=== PATIENT | male | born 2005 | race Two or more races ===

== ENCOUNTER 2024-05-12 04:48 | Inpatient (IN) | payer MEDICAID, OTHER ==
[~2024-05-12] VITALS: Ht 177.8 cm; Wt 59.0 kg
--- NOTE | 2024-05-12 05:11 | ED.PDOC ---
History of Present Illness HPI Comments 19 year old male presents to the ED with a chief complaint of generalized weakness onset today. Patient began experiencing nausea/vomiting, went to the restroom and shortly after was found on the bathroom floor, weak, not responsive and disoriented. Mother states patient had wingstop for dinner, patient's si shannan experienced nausea/vomiting one day ago. Upon ED arrival BS was 120, BP 113/76, HR 113. PMHx asthma. No other symptoms or modifying factors present at this time. Chief Complaint: General Weakness Time Seen by MD: 05:02 Reviewed Notes: Medications, Allergies Allergies: Coded Allergies: NO KNOWN ALLERGIES (Unverified , 05/12/24) Home Meds Active Scripts Amoxicillin & Pot Clavulanate (AUGMENTIN TABLET) 875 Mg Tb, 875 MG PO BID for 5 Days, #10 TAB Prov:ARCELIA CARRRA RESIDENT 05/13/24 Information Source: Patient, Relative (Mother) Mode of Arrival: Ambulatory Severity: Moderate Timing: Hours Duration: Since onset Prehospital treatment: None Past Medical History PAST MEDICAL HISTORY: Asthma Surgical History: Denies all surgeries Family History Family History: Unknown Social History Smoker: Non-Smoker Alcohol: Denies ETOH Use Drugs: Denies Drug Use Lives In: Home Constitutional: reports: chills, weakness; denies: diaphoresis, fatigue, fever, malaise, sweats, others EENTM: denies: blurred vision, double vision, ear bleeding, ear discharge, ear drainage, ear pain, ear ringing, eye pain, eye redness, hearing loss, mouth beth n, mouth swelling, nasal discharge, nose bleeding, nose congestion, nose pain, photophobia, tearing, throat pain, throat swelling, voice changes, others Cardiovascular: denies: chest pain, dizzy spells, diaphoresis, Dyspnea on exertion, edema, irregular heart beat, left arm pain, lightheadedness, palpitations, PND, syncope, others Gastrointestinal: reports: nausea, vomiting; denies: abdomen distended, abdominal pain, blood streaked bowels, constipated, diarrhea, dysphagia, difficulty swallowing, hematemesis, melena, poor appetite, poor fluid intake, rectal bleeding, rectal pain, others Genitourinary: denies: burning, dysuria, flank pain, frequency, hematuria, incontinence, penile discharge, penile sore, pain, testicle pain, testicle swelling, urgency, others Neurological: reports: weakness, others (disoriented); denies: dizziness, fainting, headache, left sided numbness, left sided weakness, numbness, paresthesia, pre-existing deficit, right sided numbness, right sided weakness, seizure, speech problems, tingling, tremors Musculoskeletal: denies: back pain, gout, joint pain, joint swelling, muscle pain, muscle stiffness, neck pain, others Integumetry: reports: change in color (pale); denies: bruises, change in hair/nails, dryness, laceration, lesions, lumps, rash, wounds, others Allergic/Immunocompromised: denies: Difficulty Healing, Frequent Infections, Hives, Itching, others Hematologic/Lymphatic: denies: anemia, blood clots, easy bleeding, easy bruising, swollen glands, others Endocrine: denies: excessive hunger, excessive sweating, excessive thirst, excessive urination, flushing, intolerance to cold, intolerance to heat, unexplained weight gain, unexplained weight loss, others Psychiatric: denies: anxiety, bipolar disorder, depression, hopeless, panic disorder, schizophrenia, sleepless, suicidal, others All Other Systems: Reviewed and Negative Physical Exam General Appearance: Moderate Distress, Thin, Other (weak apperaring, diaphoretic ) HEENT: Normal ENT Inspection, Pharynx Normal, TMs Normal Neck: Full Range of Motion, Non-Tender, Normal, Normal Inspection Respiratory: Chest Non-Tender, Lungs Clear, No Accessory Muscle Use, No Respiratory Distress, Normal Breath Sounds Cardiovascular: No Edema, No JVD, No Murmur, No Gallop, Normal Peripheral Pulses, Regular Rate/Rhythm Breast Exam: Deferred Gastrointestinal: No Organomegaly, Non Tender, No Pulsatile Mass, Normal Bowel Sounds, Soft Genitalia: Deferred Pelvic: Deferred Rectal: Deferred Extremities: No calf tenderness, Normal capillary refill, Normal inspection, Normal range of motion, Non-tender, No pedal edema Musculoskeletal : Apperance: Normal Neurologic: Alert, e commerce web developer II-XII nml as Tested, No Motor Deficits, Normal Affect, Normal Mood, No Sensory Deficits Cerebellar Function: Normal Reflexes: Normal Skin: Dry, Pallor, Other (cool to touch) Lymphatic: No Adenopathy Was a procedure done? Was a procedure done?: No Differential Dx Considerations may include: Viral syndrome, gastroenteritis, dehydration, colitis X-Ray, Labs, Meds, VS Vital Signs Date Time Temp Pulse Resp B/P (MAP) Pulse Ox O2 Delivery O2 Flow Rate FiO2 05/12/24 09:00 98 16 95 Room Air* 0 21 05/12/24 08:00 98 16 118/69 (85) 95 05/12/24 06:18 95 15 96 Room Air* 0 21 05/12/24 06:01 97.1 95 15 117/72 (87) 96 97.1 05/12/24 05:09 114 05/12/24 04:48 97.1 115 20 113/76 (88) 99 Lab Test 05/12/24 08:04 05/12/24 07:34 05/12/24 05:26 Range/Units Influenza Type A Antigen Negative Negative Influenza Type B Antigen Negative Negative SARS-CoV-2 Antigen (Rapid) Negative NEGATIVE Lactic Acid Level 1.1 4.5 *H 0.4-2.0 mmol/L White Blood Count 28.3 H 4.4-10.8 10^3/uL Red Blood Count 6.76 H 4.5-5.90 10^6/uL Hemoglobin 19.7 H 13.5-17.5 g/dL Hematocrit 56.5 H 41.0-53.0 % Mean Corpuscular Volume 83.6 80.0-100.0 fL Mean Corpuscular Hemoglobin 29.1 28.0-32.0 pg Mean Corpuscular Hemoglobin Concent 34.8 32.0-36.0 g/dL Red Cell Distribution Width 12.6 11.8-14.3 % Platelet Count 459 H 140-450 10^3/uL Mean Platelet Volume 7.1 6.9-10.8 fL Neutrophils (%) (Auto) 37.0-80.0 % Lymphocytes (%) (Auto) 10.0-50.0 % Monocytes (%) (Auto) 0.0-12.0 % Basophils (%) (Auto) 0.0-2.0 % Neutrophils # (Auto) 1.6-8.6 10 ^3/uL Lymphocytes # (Auto) 0.4-5.4 10 ^3/uL Monocytes # (Auto) 0-1.3 10 ^3/uL Differential Total Cells Counted 100.0 100 Neutrophils % (Manual) 73 37.0-80.0 Band Neutrophils % (Manual) 8 Lymphocytes % (Manual) 8 L 10.0-50.0 Monocytes % (Manual) 9 0-12 Eosinophils % (Manual) 2 0-7 Basophils % (Manual) 0 0.0-2.0 Metamyelocytes % (manual) 0 Myelocytes % (Manual) 0 Promyelocytes % (Manual) 0 Blast Cells % (Manual) 0 Reactive Lymphocytes 0 Platelet Estimate Increased Sodium Level 137 136-145 mmol/L Potassium Level 3.6 3.5-5.1 mmol/L Chloride Level 102 98-107 mmol/L Carbon Dioxide Level 19 L 20-31 mmol/L Anion Gap 16 H 5-15 Blood Urea Nitrogen 12 9-23 mg/dL Creatinine 1.33 H 0.700-1.30 mg/dL Glomerular Filtration Rate Calc 78 >90 mL/min BUN/Creatinine Ratio 9.0 L 10.0-20.0 Serum Glucose 160 H 74-106 mg/dL Calcium Level 11.5 H 8.7-10.4 mg/dL Total Bilirubin 2.2 H 0.2-1.0 mg/dL Aspartate Amino Transferase (AST) 15 13-40 U/L Alanine Aminotransferase (ALT) 25 7-40 U/L Alkaline Phosphatase 119 H 46-116 U/L Creatine Kinase 155 46-171 U/L Total Protein 9.3 H 5.7-8.2 g/dL Albumin 5.9 H 3.2-4.8 g/dL Plasma/Serum Blood Alcohol < 3.0 <10 mg/dL Time of 1ST Reevaluation: 05:32 Reevaluation 1ST: Unchanged Patient Education/Counseling: Diagnosis, Treatment, Prognosis Family Education/Counseling: Diagnosis, Treatment, Prognosis Additional Information The following tests were ordered, and results were reviewed by me: CBC, CMP, DRUG SCREEN, LA W/ REFLEX, UA, XY CHEST, RAPID INFLUENZA A&B, COVID Additional Information was gathered from interviewing the following independent historians: mother I reviewed and agreed with the following test results read by other providers: XY CHEST I discussed treatment and results with medical personnel and patient, mother Departure 1 Departure Time of Disposition: 03:04 (Patient with severe dehydration likely secondary to gastroenteritis. We will admit patient for further workup) Impression: Primary Impression: Severe dehydration Additional Impression: Gastroenteritis Disposition: ADMITTED INPATIENT Admit to: Med Surg Condition: Serious e-Prescriptions Amoxicillin & Pot Clavulanate (AUGMENTIN TABLET) 875 Mg Tb 875 MG PO BID for 5 Days, #10 TAB Prov: EZRA CARR RESIDENT 05/13/24 Critical Care Note Critical Care Time?: No Stability Stability form required: No I personally scribed for KATIA FORRESTER MD ([email or web address]) on 05/12/24 at 05:11. Electronically submitted by Ashley Amado ([email or web address]). I personally scribed for KATIA FORRESTER MD ([email or web address]) on 05/12/24 at 05:14. Electronically submitted by Ashley Amado ([email or web address]). KATIA FORRESTER MD May 12, 2024 05:11
[2024-05-12] MEDS: ONDANSETRON HCL 4 MG/2 ML VIAL IV ONE (05:25)
[2024-05-12] MEDS: KETOROLAC TROMETH 30 MG/ML 1ML VIAL IV ONE (05:25)
[2024-05-12] MEDS: SODIUM CHLORIDE 0.9% 1,000 ML IV ONE ×2 (05:25→11:00)
[2024-05-12] MEDS: FAMOTIDINE (10MG/ML) 2ML VL IV ONE (05:25)
[2024-05-12 05:43] LABS: Hemoglobin 19.7 g/dL (13.5-17.5); Mean Corpuscular Hgb Conc. 34.8 g/dL (32.0-36.0); White Blood Cell 28.3 10^3/uL (4.4-10.8)
[2024-05-12 05:46] LABS: Mean Corpuscular Hemoglobin 29.1 pg (28.0-32.0); Mean Corpuscular Volume 83.6 fL (80.0-100.0); Platelet Count (auto) 459 10^3/uL (140-450); Red Blood Cells 6.76 10^6/uL (4.5-5.90); Red Cell Distribution Width 12.6 % (11.8-14.3)
[2024-05-12 05:49] LABS: Hematocrit 56.5 % (41.0-53.0)
[2024-05-12 05:51] LABS: Basophils % (manual) 0 (0.0-2.0); Blast Cells 0; Metamyelocytes % 0; Myelocytes % 0; Promyelocytes % 0; Reactive Lymphocytes 0
[2024-05-12 06:01] LABS: Alanine Aminotransferase 25 U/L (7-40); Alkaline Phosphatase 119 U/L (46-116); Anion Gap 16 (5-15); Aspartate Aminotransferase 15 U/L (13-40); Blood Urea Nitrogen 12 mg/dL (9-23); Calcium 11.5 mg/dL (8.7-10.4); Carbon Dioxide 19 mmol/L (20-31); Chloride 102 mmol/L (98-107); Glucose 160 mg/dL (74-106); Potassium 3.6 mmol/L (3.5-5.1); Sodium 137 mmol/L (136-145)
[2024-05-12 06:02] LABS: Bilirubin, Total 2.2 mg/dL (0.2-1.0); Lactic Acid w/Reflex 4.5 mmol/L (0.4-2.0); Total Protein 9.3 g/dL (5.7-8.2)
[2024-05-12 06:14] LABS: Albumin 5.9 g/dL (3.2-4.8)
[2024-05-12 06:16] LABS: Blood Alcohol < 3.0 mg/dL (<10)
[2024-05-12 06:18] VITALS: PULSE 95; RESP 15; O2SAT 96
--- NOTE | 2024-05-12 06:38 | DVH ---
CHEST RADIOGRAPH Indication: weakness Technique: Single frontal view of the chest was obtained Comparison: None FINDINGS: Lines and Tubes: None Lungs: No focal consolidation. Pleura: No effusion. No pneumothorax. Cardiomediastinal contours: Unremarkable Bones: No acute osseous abnormality. IMPRESSION: 1. No acute cardiopulmonary disease.
[2024-05-12 06:51] LABS: Band Neutrophils % (manual) 8; Eosinophils % (manual) 2 (0-7); Lymphocytes % (manual) 8 (10.0-50.0)
[2024-05-12 06:52] LABS: Monocytes % (manual) 9 (0-12); Platelet Estimate Increased
[2024-05-12 09:00] VITALS: PULSE 98; RESP 16; O2SAT 95
[2024-05-12 09:02] LABS: COVID19 ANTIGEN SOFIA FIA NEGATIVE (NEGATIVE); Rapid Influenza A Negative (Negative); Rapid Influenza B Negative (Negative)
[2024-05-12] MEDS ORDERED: MORPHINE SULFATE INJ 2 MG/ml SYRG IV PRN (09:30)
[2024-05-12] MEDS ORDERED: DOCUSATE SOD 100 MG CAP PO PRN (09:30)
[2024-05-12] MEDS ORDERED: NITROGLYCERIN 0.4 MG SL TAB SL PRN (09:30)
[2024-05-12] MEDS ORDERED: ONDANSETRON HCL 4 MG/2 ML VIAL IV PRN (09:30)
--- NOTE | 2024-05-12 09:36 | DVHHP2 ---
History of Present Illness Reason for Visit: Weakness nausea and vomiting History of Present Illness 19-year-old male past medical history asthma no surgical history chief complaint patient states he woke up this morning he was vomiting so hard that his body locked up and he could not move his hands. He states he has vomited at 1:00 a.m. straighten he also had some diarrhea he has not been able to keep anything down he felt like he was going to pass out after all the vomiting he states that he does have some family members who sick at home he states he is not able to eat or drink. Patient does complain of epigastric pain no chest pain no shortness with the breath. When evaluating patient's labs and imaging looks like Pepcid was given Toradol Zofran normal saline white count was found to be 28.3 hemoglobin was 19.7/56.5 platelet count was found to be 459 creatinine was 1.33 lactate was 4.5 total bili was 2.2 alkaline phosphatase 119 albumin was 5.9 chest x-ray was unremarkable alcohol level was unremarkable. With these findings we will admit patient for IV hydration Past Medical History Asthma Past Surgical History Denies surgical history Family History Reviewed, non-contributory to the management of this case. Past Social History The patient lives at home, denies smoking, alcohol or illicit drugs abuse. Review of Systems Constitutional: No: Fever, Chills, Sweats, Weakness, Malaise, Other Eyes: No: Pain, Vision change, Conjunctivae inflammation, Eyelid inflammation, Other, Redness ENT: No: Ear pain, Ear discharge, Nose pain, Nose discharge, Nose congestion, Mouth pain, Mouth swelling, Throat pain, Throat swelling, Other Respiratory: No: Cough, Dry, Shortness of breath, SOB with excertion, Wheezing, Hemoptysis, Pleuritic Pain, Sputum, Wheezing, Other Cardiovascular: No: Chest Pain, Palpitations, Orthopnea, Paroxysmal Noc. Dyspnea, Edema, Lt Headedness, Other Gastrointestinal: Nausea, Vomiting, Abdominal Pain, Diarrhea; No: Constipation, Melena, Hematochezia, Other Genitourinary: No Dysuria, No Frequency, No Incontinence, No Hematuria, No Retention, No Other Musculoskeletal: No: other, neck pain, shoulder pain, arm pain, back pain, hand pain, leg pain, foot pain Skin: No: Rash, Lesions, Jaundice, Bruising, Other Neurological: Weakness; No: Numbness, Incoordination, Change in speech, Confusion, Seizures, Other Allergies: Coded Allergies: NO KNOWN ALLERGIES (Unverified , 05/12/24) Exam Vital Signs Vital Signs Date Time Temp Pulse Resp B/P (MAP) Pulse Ox O2 Delivery O2 Flow Rate FiO2 05/12/24 08:00 98 16 118/69 (85) 95 05/12/24 06:18 Room Air* 0 21 05/12/24 06:01 97.1 97.1 General Appearance: Alert, Oriented X3, Cooperative, Other (Very weak on my exam) HEENT: Atraumatic, PERRLA, EOMI, Other (Very dry oral mucous membrane) Respiratory: Clear to auscultation, Normal air movement Cardiovascular: Regular rate, Normal S1, Normal S2, No murmurs Abdominal: Normal bowel sounds, Soft, No tenderness, No hepatospenomegaly, No masses, Other (Flat abdomen) Extremities: No clubbing, No cyanosis, No edema, Normal pulses, No tenderness/swelling Skin: No rashes, No breakdown, No significant lesion Neuro: Normal speech, Strength at 5/5 X4 ext, Normal tone, Sensation intact, Cranial nerves 3-12 NL, Reflexes 2+ Psych/Mental Status: Mental status NL, Mood NL Labs/Xrays Chest x-ray unremarkable I reviewed labs, imaging CT scan abdomen pelvis, EKG and all diagnostic studies on this patient from ED records and the medical chart Labs Test 05/12/24 08:04 05/12/24 07:34 05/12/24 05:26 Range/Units Influenza Type A Antigen Negative Negative Influenza Type B Antigen Negative Negative SARS-CoV-2 Antigen (Rapid) Negative NEGATIVE Lactic Acid Level 1.1 0.4-2.0 mmol/L White Blood Count 28.3 H 4.4-10.8 10^3/uL Red Blood Count 6.76 H 4.5-5.90 10^6/uL Hemoglobin 19.7 H 13.5-17.5 g/dL Hematocrit 56.5 H 41.0-53.0 % Mean Corpuscular Volume 83.6 80.0-100.0 fL Mean Corpuscular Hemoglobin 29.1 28.0-32.0 pg Mean Corpuscular Hemoglobin Concent 34.8 32.0-36.0 g/dL Red Cell Distribution Width 12.6 11.8-14.3 % Platelet Count 459 H 140-450 10^3/uL Mean Platelet Volume 7.1 6.9-10.8 fL Neutrophils (%) (Auto) 37.0-80.0 % Lymphocytes (%) (Auto) 10.0-50.0 % Monocytes (%) (Auto) 0.0-12.0 % Basophils (%) (Auto) 0.0-2.0 % Neutrophils # (Auto) 1.6-8.6 10 ^3/uL Lymphocytes # (Auto) 0.4-5.4 10 ^3/uL Monocytes # (Auto) 0-1.3 10 ^3/uL Differential Total Cells Counted 100.0 100 Neutrophils % (Manual) 73 37.0-80.0 Band Neutrophils % (Manual) 8 Lymphocytes % (Manual) 8 L 10.0-50.0 Monocytes % (Manual) 9 0-12 Eosinophils % (Manual) 2 0-7 Basophils % (Manual) 0 0.0-2.0 Metamyelocytes % (manual) 0 Myelocytes % (Manual) 0 Promyelocytes % (Manual) 0 Blast Cells % (Manual) 0 Reactive Lymphocytes 0 Platelet Estimate Increased Sodium Level 137 136-145 mmol/L Potassium Level 3.6 3.5-5.1 mmol/L Chloride Level 102 98-107 mmol/L Carbon Dioxide Level 19 L 20-31 mmol/L Anion Gap 16 H 5-15 Blood Urea Nitrogen 12 9-23 mg/dL Creatinine 1.33 H 0.700-1.30 mg/dL Glomerular Filtration Rate Calc 78 >90 mL/min BUN/Creatinine Ratio 9.0 L 10.0-20.0 Serum Glucose 160 H 74-106 mg/dL Calcium Level 11.5 H 8.7-10.4 mg/dL Total Bilirubin 2.2 H 0.2-1.0 mg/dL Aspartate Amino Transferase (AST) 15 13-40 U/L Alanine Aminotransferase (ALT) 25 7-40 U/L Alkaline Phosphatase 119 H 46-116 U/L Total Protein 9.3 H 5.7-8.2 g/dL Albumin 5.9 H 3.2-4.8 g/dL Plasma/Serum Blood Alcohol < 3.0 <10 mg/dL Assessment/Plan Assessment/Plan acute severe dehydration due to intractable vomiting and diarrhea Order IV fluid bolus Order IV hydration Order Zofran as needed for nausea Order abdominal ultrasound follow up results Order CT scan abdomen pelvis follow up results acute lactic acidosis likely from dehydration Order repeat lactate follow up results Order IV hydration We will place on zosyn prophylaxis for now acute leukocytosis can be related to dehydration Order IV hydration for now Order prophylaxis Zosyn for now If white count improves can DC Zosyn Follow up white count in the a.m. If with fever can consider infectious workup acute polycythemia can be from severe dehydration Order IV hydration for now Follow up H&H in the a.m. If hemoglobin is still elevated after hydration we will need to consider heme consult acute cristian likely related firm dehydration Order urine sodium creatinine check FENA Order IV hydration for now acute elevation in t bili with transaminitis Order abdominal ultrasound follow up results Avoid liver toxic drugs for now Chronic problems Asthma without exacerbation fen/ppx Clear liquid diet for now IV fluids Protonix SCDs for now No DVT prophylaxis since patient is ambulatory Plan admit to tele since patient has with tachycardia Plan discussed with: Patient My Orders Orders - RIGOBERTO JHAVERI DNP Procedure Category Date Status Time Stool Wbc LAB 05/12/24 Verified 09:29 Stool Bacterial NICO 05/12/24 Verified Culture 09:29 Clostridium Difficile NICO 05/12/24 Verified Toxin 09:29 NS PHA 05/12/24 Verified 09:30 NS PHA 05/12/24 Verified 09:30 Creatine Kinase LAB 05/12/24 Verified 09:29 Abdomen Limited US 05/12/24 Verified 09:29 Ct Ab Pel Wo Con-No CT 05/12/24 Verified Oral Or Iv 09:29 Admit ADMIT 05/12/24 Verified 09:29 Allergies TATIANA 05/12/24 Verified 09:29 Code Status CODE 05/12/24 Verified 09:29 Oxygen Per Hour RT 05/12/24 Verified 09:29 Ondansetron Hcl PHA 05/12/24 Verified (Zofran) 09:30 Docusate Sodium PHA 05/12/24 Verified Capsule (Colace 09:30 Complete Blood Count LAB 05/13/24 Verified 04:00 Comprehensive LAB 05/13/24 Verified Metabolic Panel 04:00 Condition: Stable TATIANA 05/12/24 Verified 09:29 Clear Liq Diet DIET 05/12/24 Verified Breakfast BRP TATIANA 05/12/24 Verified 09:29 Morphine Sulfate PHA 05/12/24 Verified Injection 09:30 Sequential [facility] 05/12/24 Verified Compression Device Nitroglycerin PHA 05/12/24 Verified Sublingual (Ntrostat 09:30 Stat Ekg For Chest [facility] 05/12/24 Verified Pain 09:29 Notify Md Of Changes [facility] 05/12/24 Verified From Base 09:29 Kidney Trimmer For [facility] 05/12/24 Verified 24 Hours 09:29 Emergency Dysrhythmia [facility] 05/12/24 Verified Protocol 09:29 Rhythm Strips Once [facility] 05/12/24 Verified Every Shift 09:29 Oxygen By Nasal RT 05/12/24 Verified Cannula 09:29 Date of Service: May 12, 2024 Billing Provider: RIGOBERTO JHAVERI DNP Common Visit Codes: [id number] INP/OBS CARE (HIGH) RIGOBERTO JHAVERI DNP May 12, 2024 09:36
--- NOTE | 2024-05-12 10:54 | DVH ---
ULTRASOUND ABDOMEN LIMITED INDICATION: elevation in t bili and lft eval for biliary obstruction TECHNIQUE: Multiple real-time sonographic images of the abdomen were obtained. COMPARISON: None FINDINGS: The visualized liver parenchyma appears homogenous . The liver measures cm. No discrete hepati c lesion or intrahepatic biliary ductal dilatation is identified. There is no evidence of gallstones, gallbladder wall thickening or pericholecystic fluid. The common biliary duct is not dilated. The right kidney measures 10.6 cm length. No sonographic evidence of nephrolithiasis or hydronephro sis. Visualized portions of the pancreas appears within normal limits. IMPRESSION: 1. Unremarkable righ upper quadrant ultrasound. HS:Y
[2024-05-12] MEDS: SODIUM CHLORIDE 0.9% 1,000 ML IV SCH (11:00)
[2024-05-12] MEDS: PANTOPRAZOLE 40 MG/10 ML VIAL INJ IV ONE (11:27)
[2024-05-12 14:13] LABS: Urine Bacteria None Seen /hpf (None Seen)
[2024-05-12 14:28] LABS: Urine Blood Negative /uL (Negative); Urine Color Yellow (Yellow); Urine Hyaline Cast MOD /lpf (0 - 2); Urine Mucus MODERATE (None Seen); Urine Protein, UAD 2+ (Negative); Urine Specific Gravity 1.037 (1.001-1.035); Urine Sperm PRESENT /hpf (None Seen); Urine Squamous Epithelial Cell FEW /hpf (<5); Urine Urobilinogen Normal (Negative); Urine WBC 2 /HPF (0-3); Urine pH 5.5 (5.0-9.0)
[2024-05-12 14:30] LABS: Urine Clarity Hazy (Clear)
[2024-05-12 14:43] LABS: Amphetamine Screen, Urine Neg (NEGATIVE); Barbiturate Scree,Urine Neg (NEGATIVE); Benzodiazephine Screen, Urine Neg (NEGATIVE); Cannabinoid Screen, Urine Neg (NEGATIVE); Cocaine Screen, Urine Neg (NEGATIVE); Opiate Scree,Urine Neg (NEGATIVE); Phencyclidine Screen, Urine Neg (NEGATIVE)
[2024-05-12] MEDS: PIPERACILLIN-TAZOB 3.375GM 100 ML IV ONE (18:45)
--- NOTE | 2024-05-12 19:35 | DVH ---
Procedure: CT CT AB PEL WO CON-NO ORAL OR IV 05/12/2024 09:55 AM Indication: eval for acute abd pain Comparison Study: None available at time of dictation. Technique: Axial images were obtained and reformatted in coronal and sagittal planes. All CT scans at this medical facility are performed using dose modulation techniques as appropriate t o a performed exam including the following: Automated exposure control was utilized; adjustment of th e MA and/or KV according to patient size; and use of iterative reconstruction technique. CT Dose: CTDI volume is 5.07 mGy. Dose-length product is 290.12 mGy*cm FINDINGS: Lower Chest: Unremarkable. Hepatobiliary: Unremarkable. Spleen: Unremarkable. Pancreas: Unremarkable. Adrenal Glands: Unremarkable. tract: The kidneys are normal in size bilaterally without hydronephrosis or nephrolithiasis. The urinary bladder is unremarkable. GI tract: The stomach is grossly normal in appearance. Nondistended fluid-filled small bowel loops ar e seen in the lower abdomen. No evidence of small bowel obstruction. Liquid stool is seen in the lume n of cecum. The appendix is not visualized. No inflammatory change is noted in the right lower quadr ant. Lymphatics: No mesenteric, retroperitoneal or periportal lymphadenopathy. Vasculature: The abdominal aorta is normal in in caliber. Pelvic Organs: Unremarkable Bones/soft tissues: No acute abnormality. Other: None. IMPRESSION: 1. Findings suggestive of gastroenteritis and possible diarrheal state. No other significant abnormal ity noted.
[2024-05-12 20:00] VITALS: PULSE 107; RESP 22; O2SAT 99
[2024-05-12 21:41] VITALS: BP 121/65; PULSE 109; RESP 19; TEMP 98.1; O2SAT 100
[2024-05-13] VITALS (7 sets, daily range): BP systolic 111–122; BP diastolic 52–70; PULSE 71–99; RESP 18–20; TEMP 97.2–98.3; O2SAT 96–100
[2024-05-13] MEDS: PIPERACILLIN-TAZOB 3.375GM 100 ML IV SCH (06:03)
[2024-05-13 06:41] LABS: Basophils # (auto) 0 10 ^3/uL (0-0.2); Basophils % (auto) 0.3 % (0.0-2.0); Eosinophils # (auto) 0.2 10 ^3/uL (0-0.8); Eosinophils % (auto) 2.8 % (0.0-7.0); Hematocrit 40.1 % (41.0-53.0); Hemoglobin 14.1 g/dL (13.5-17.5); Lymphocytes # (auto) 1.2 10 ^3/uL (0.4-5.4); Lymphocytes % (auto) 16.5 % (10.0-50.0); Mean Corpuscular Hemoglobin 29.1 pg (28.0-32.0); Mean Corpuscular Hgb Conc. 35.1 g/dL (32.0-36.0); Monocytes # (auto) 0.8 10 ^3/uL (0-1.3); Monocytes % (auto) 10.7 % (0.0-12.0); Neutrophils # (auto) 5.2 10 ^3/uL (1.6-8.6); Neutrophils % (auto) 69.7 % (37.0-80.0); Platelet Count (auto) 226 10^3/uL (140-450); Red Blood Cells 4.84 10^6/uL (4.5-5.90); Red Cell Distribution Width 12.4 % (11.8-14.3); White Blood Cell 7.4 10^3/uL (4.4-10.8)
[2024-05-13 06:52] LABS: Alanine Aminotransferase 13 U/L (7-40); Albumin 3.7 g/dL (3.2-4.8); Alkaline Phosphatase 67 U/L (46-116); Anion Gap 9 (5-15); Aspartate Aminotransferase 12 U/L (13-40); BUN/Creatinine Ratio 12.4 (10.0-20.0); Bilirubin, Total 1.6 mg/dL (0.2-1.0); Blood Urea Nitrogen 11 mg/dL (9-23); Calcium 9.1 mg/dL (8.7-10.4); Carbon Dioxide 22 mmol/L (20-31); Chloride 112 mmol/L (98-107); Glucose 91 mg/dL (74-106); Potassium 3.6 mmol/L (3.5-5.1); Sodium 143 mmol/L (136-145); Total Protein 5.7 g/dL (5.7-8.2)
[2024-05-13] MEDS ORDERED: AUG875T PO (12:18)
[2024-05-13] MEDS: PANTOPRAZOLE 40 MG/10 ML VIAL INJ IV SCH (12:35)
--- NOTE | 2024-05-13 12:46 | ECG ---
[facility] Test Date: 2024-05-12 Test Time: 05:09:13 Pat Name: SUHAS SOLIS Department: ER Room: 0214T A Gender: M Electrician Third: AMRIK : 2005 Requested By: KATIA FORRESTER Order Number: [id number] Reading MD: oBo Mccray Measurements Intervals [place] Rate: 114 P: 84 ME: 134 QRS: 118 QRSD: 91 T: 62 QT: 329 QTc: 454 Interpretive Statements Sinus tachycardia Biatrial enlargement Right ventricular hypertrophy ST elev, probable normal early repol pattern Electronically Signed On 05-13-2024 17:15:30 PST by Boo Mccray Please click the below link to view image of tracing.
--- NOTE | 2024-05-13 14:34 | DVHDSRES ---
Discharge Summary Date of Admission Resident Creating Document: EZRA CARR RESIDENT May 12, 2024 at 09:29 Date of Discharge: May 13, 2024 Admitting Diagnosis Intractable nausea and vomiting Wounds: No wound was present Labs/Diagnostic Data: Laboratory Results Test 05/13/24 05:22 05/12/24 14:00 05/12/24 08:04 05/12/24 07:34 White Blood Count 7.4 10^3/uL (4.4-10.8) Red Blood Count 4.84 10^6/uL (4.5-5.90) Hemoglobin 14.1 g/dL (13.5-17.5) Hematocrit 40.1 % (41.0-53.0) Mean Corpuscular Volume 83.0 fL (80.0-100.0) Mean Corpuscular Hemoglobin 29.1 pg (28.0-32.0) Mean Corpuscular Hemoglobin Concent 35.1 g/dL (32.0-36.0) Red Cell Distribution Width 12.4 % (11.8-14.3) Platelet Count 226 10^3/uL (140-450) Mean Platelet Volume 7.0 fL (6.9-10.8) Neutrophils (%) (Auto) 69.7 % (37.0-80.0) Lymphocytes (%) (Auto) 16.5 % (10.0-50.0) Monocytes (%) (Auto) 10.7 % (0.0-12.0) Eosinophils (%) (Auto) 2.8 % (0.0-7.0) Basophils (%) (Auto) 0.3 % (0.0-2.0) Neutrophils # (Auto) 5.2 10 ^3/uL (1.6-8.6) Lymphocytes # (Auto) 1.2 10 ^3/uL (0.4-5.4) Monocytes # (Auto) 0.8 10 ^3/uL (0-1.3) Eosinophils # (Auto) 0.2 10 ^3/uL (0-0.8) Basophils # (Auto) 0 10 ^3/uL (0-0.2) Nucleated Red Blood Cells 0.0 % Sodium Level 143 mmol/L (136-145) Potassium Level 3.6 mmol/L (3.5-5.1) Chloride Level 112 mmol/L (98-107) Carbon Dioxide Level 22 mmol/L (20-31) Anion Gap 9 (5-15) Blood Urea Nitrogen 11 mg/dL (9-23) Creatinine 0.89 mg/dL (0.700-1.30) Glomerular Filtration Rate Calc 126 mL/min (>90) BUN/Creatinine Ratio 12.4 (10.0-20.0) Serum Glucose 91 mg/dL (74-106) Calcium Level 9.1 mg/dL (8.7-10.4) Total Bilirubin 1.6 mg/dL (0.2-1.0) Aspartate Amino Transferase (AST) 12 U/L (13-40) Alanine Aminotransferase (ALT) 13 U/L (7-40) Alkaline Phosphatase 67 U/L (46-116) Total Protein 5.7 g/dL (5.7-8.2) Albumin 3.7 g/dL (3.2-4.8) Urine Color Yellow (Yellow) Urine Clarity Hazy (Clear) Urine pH 5.5 (5.0-9.0) Urine Specific [place] 1.037 (1.001-1.035) Urine Protein 2+ (Negative) Urine Ketones 3+ (Negative) Urine Blood Negative /uL (Negative) Urine Nitrite Negative (Negative) Urine Bilirubin Negative (Negative) Urine Urobilinogen Normal mg/dL (Negative) Urine Leukocyte Esterase Negative /uL (Negative) Urine RBC 5 /hpf (0 - 3) Urine Microscopic WBC 2 /HPF (0-3) Urine Squamous Epithelial Cells Few /hpf (<5) Urine Bacteria None seen /hpf (None Seen) Urine Hyaline Casts Mod /lpf (0 - 2) Urine Mucus Moderate (None Seen) Urine Sperm Present /hpf (None Seen) Urine Glucose Normal mg/dL (Normal) Urine Opiates Screen Neg (NEGATIVE) Urine Fentanyl Screen Neg (NEGATIVE) Urine Barbiturates Screen Neg (NEGATIVE) Urine Phencyclidine Screen Neg (NEGATIVE) Urine Amphetamines Screen Neg (NEGATIVE) Urine Benzodiazepines Screen Neg (NEGATIVE) Urine Cocaine Screen Neg (NEGATIVE) Urine Cannabinoids Screen Neg (NEGATIVE) Influenza Type A Antigen Negative (Negative) Influenza Type B Antigen Negative (Negative) SARS-CoV-2 Antigen (Rapid) Negative (NEGATIVE) Lactic Acid Level 1.1 mmol/L (0.4-2.0) Test 05/12/24 05:26 Differential Total Cells Counted 100.0 (100) Neutrophils % (Manual) 73 (37.0-80.0) Band Neutrophils % (Manual) 8 Lymphocytes % (Manual) 8 (10.0-50.0) Monocytes % (Manual) 9 (0-12) Eosinophils % (Manual) 2 (0-7) Basophils % (Manual) 0 (0.0-2.0) Metamyelocytes % (manual) 0 Myelocytes % (Manual) 0 Promyelocytes % (Manual) 0 Blast Cells % (Manual) 0 Reactive Lymphocytes 0 Platelet Estimate Increased Creatine Kinase 155 U/L (46-171) Plasma/Serum Blood Alcohol < 3.0 mg/dL (<10) Other Laboratory Tests 05/13/24 05:22 Brief Hx & Hospital Course: This is a 19-year-old male with past medical history of asthma presented to the ED with a chief complaint of abdominal pain, nausea and vomiting since 4:00 a.m. prior to this admission. stage that last night he was eating from outside restaurant food with the family in started having abdominal pain which is constant colicky in nature 09/27, with multiple episodes of vomiting and diarrhea. He also complains of dizziness and about to collapse that prompted this visit. Hospital course: Initially the patient was presented with severe dehydration with SIRS with tachycardia, hemoconcentration, leukocytosis, elevated lactic acid and hyperbilirubinemia with transaminitis. chest x-ray was normal and CT abdomen pelvis demonstrated findings suggestive of gastroenteritis and possible diarrheal state and U/S of the abdomen was normal. Patient was treated with IV normal saline 125 mL/hours, IV Zosyn 3.375 mg Q 8 hours, ondansetron 4 mg q.4 p.r.n. and morphine 2 mg Q 4 p.r.n. Today morning patient mentioned improvement of abdominal pain and no complaint of diarrhea and nausea. Discharge plan was discussed with the patient was and all questions were answered. Patient is being discharged to home. Discharge diagnosis: Acute severe dehydration due to intractable vomiting and diarrhea SIRS due to above Lactic acidosis likely from dehydration Acute leukocytosis likely due to dehydration ABBY secondary to hemodynamically mediated/VMN Hyperbillirubinemia with transaminitis Discharge plan: Discharge disposition: Home Medications : Augmentin 875 mg b.i.d. for 5 days Follow up : DC clinic in 1 week : PCP in 1 week Consults/Reason for consult No consultation was done Operations or Procedures Procedure: CT CT AB PEL WO CON-NO ORAL OR IV 05/12/2024 09:55 AM Indication: eval for acute abd pain Comparison Study: None available at time of dictation. Technique: Axial images were obtained and reformatted in coronal and sagittal planes. All CT scans at this medical facility are performed using dose modulation techniques as appropriate to a performed exam including the following: Automated exposure control was utilized; adjustment of the MA and/or KV according to patient size; and use of iterative reconstruction technique. CT Dose: CTDI volume is 5.07 mGy. Dose-length product is 290.12 mGy*cm FINDINGS: Lower Chest: Unremarkable. Hepatobiliary: Unremarkable. Spleen: Unremarkable. Pancreas: Unremarkable. Adrenal Glands: Unremarkable. tract: The kidneys are normal in size bilaterally without hydronephrosis or nephrolithiasis. The urinary bladder is unremarkable. GI tract: The stomach is grossly normal in appearance. Nondistended fluid-filled small bowel loops are seen in the lower abdomen. No evidence of small bowel obstruction. Liquid stool is seen in the lumen of cecum. The appendix is not visualized. No inflammatory change is noted in the right lower quadrant. Lymphatics: No mesenteric, retroperitoneal or periportal lymphadenopathy. Vasculature: The abdominal aorta is normal in in caliber. Pelvic Organs: Unremarkable Bones/soft tissues: No acute abnormality. Other: None. IMPRESSION: 1. Findings suggestive of gastroenteritis and possible diarrheal state. No other significant abnormality noted. CHEST RADIOGRAPH Indication: weakness Technique: Single frontal view of the chest was obtained Comparison: None FINDINGS: Lines and Tubes: None Lungs: No focal consolidation. Pleura: No effusion. No pneumothorax. Cardiomediastinal contours: Unremarkable Bones: No acute osseous abnormality. IMPRESSION: 1. No acute cardiopulmonary disease. ULTRASOUND ABDOMEN LIMITED INDICATION: elevation in t bili and lft eval for biliary obstruction TECHNIQUE: Multiple real-time sonographic images of the abdomen were obtained. COMPARISON: None FINDINGS: The visualized liver parenchyma appears homogenous . The liver measures cm. No discrete hepatic lesion or intrahepatic biliary ductal dilatation is identified. There is no evidence of gallstones, gallbladder wall thickening or pericholecystic fluid. The common biliary duct is not dilated. The right kidney measures 10.6 cm length. No sonographic evidence of nephrolithiasis or hydronephrosis. Visualized portions of the pancreas appears within normal limits. IMPRESSION: 1. Unremarkable righ upper quadrant ultrasound. Procedure: CT CT AB PEL WO CON-NO ORAL OR IV 05/12/2024 09:55 AM Indication: eval for acute abd pain Comparison Study: None available at time of dictation. Technique: Axial images were obtained and reformatted in coronal and sagittal planes. All CT scans at this medical facility are performed using dose modulation techniques as appropriate to a performed exam including the following: Automated exposure control was utilized; adjustment of the MA and/or KV according to patient size; and use of iterative reconstruction technique. CT Dose: CTDI volume is 5.07 mGy. Dose-length product is 290.12 mGy*cm FINDINGS: Lower Chest: Unremarkable. Hepatobiliary: Unremarkable. Spleen: Unremarkable. Pancreas: Unremarkable. Adrenal Glands: Unremarkable. tract: The kidneys are normal in size bilaterally without hydronephrosis or nephrolithiasis. The urinary bladder is unremarkable. GI tract: The stomach is grossly normal in appearance. Nondistended fluid-filled small bowel loops are seen in the lower abdomen. No evidence of small bowel obstruction. Liquid stool is seen in the lumen of cecum. The appendix is not visualized. No inflammatory change is noted in the right lower quadrant. Lymphatics: No mesenteric, retroperitoneal or periportal lymphadenopathy. Vasculature: The abdominal aorta is normal in in caliber. Pelvic Organs: Unremarkable Bones/soft tissues: No acute abnormality. Other: None. IMPRESSION: 1. Findings suggestive of gastroenteritis and possible diarrheal state. No other significant abnormality noted. CHEST RADIOGRAPH Indication: weakness Technique: Single frontal view of the chest was obtained Comparison: None FINDINGS: Lines and Tubes: None Lungs: No focal consolidation. Pleura: No effusion. No pneumothorax. Cardiomediastinal contours: Unremarkable Bones: No acute osseous abnormality. IMPRESSION: 1. No acute cardiopulmonary disease. ULTRASOUND ABDOMEN LIMITED INDICATION: elevation in t bili and lft eval for biliary obstruction TECHNIQUE: Multiple real-time sonographic images of the abdomen were obtained. COMPARISON: None FINDINGS: The visualized liver parenchyma appears homogenous . The liver measures cm. No discrete hepatic lesion or intrahepatic biliary ductal dilatation is identified. There is no evidence of gallstones, gallbladder wall thickening or pericholecystic fluid. The common biliary duct is not dilated. The right kidney measures 10.6 cm length. No sonographic evidence of nephrolithiasis or hydronephrosis. Visualized portions of the pancreas appears within normal limits. IMPRESSION: 1. Unremarkable righ upper quadrant ultrasound. Condition at Discharge: Stable Final Diagnosis/Problems List Acute severe dehydration due to intractable vomiting and diarrhea SIRS due to above Lactic acidosis likely from dehydration Acute leukocytosis likely due to dehydration ABBY secondary to hemodynamically mediated/VMN Hyperbillirubinemia with transaminitis Discharge Disposition: Home Discharge Instruct/Medications Diet: Regular Activity: No Restrictions, As Tolerated Follow Up/Referral: Follow up with DC clinic in 1 week Follow up with PCP in 1 week Medications: Augmentin 875 mg b.i.d for 5 days. Discharge Statement: "Patient was advised to return to the ER or call 911 if any headaches, dizziness, shortness of breath, chest pain, abdominal pain, bleeding, fevers, or worsening of medical condition. Patient was counseled about treatment plan, medications, possible side effects, patientverbalized understanding. All questions were answered to the best of my ability. This discharge took greater then 30 minutes in planning, reviewing documentation, counseling the patient, and discussing with other team members." ASSESSMENT ASSESSMENT Assessment Acute severe dehydration due to intractable vomiting and diarrhea Lactic acidosis likely from dehydration Acute leukocytosis likely due to dehydration ABBY secondary to hemodynamically mediated/VMN Hyperbillirubinemia with transaminitis Date of Service: May 13, 2024 Billing Provider: RICO LEW MD Common Visit Codes: 12748-EPN/OBS DISCH DAY >30min EZRA CARR RESIDENT May 13, 2024 14:34 RICO LEW MD May 17, 2024 09:47
== END 2024-05-13 17:38 | disposition home or self-care (01) | DRG 422 ==
LOC: ER 04:48 → TELE 09:29 → TELE-CENTR 22:00
PROVIDERS: ADMIT Nurse Practitioner Family; ATTEND Nurse Practitioner Family
DX: E86.0 Dehydration (principal); N17.0 Acute kidney failure with tubular necrosis; E87.21 Acute metabolic acidosis; R65.10 Systemic inflammatory response syndrome (SIRS) of non-infectious origin without acute organ dysfunction; Z20.822 Contact with and (suspected) exposure to COVID-19; R74.01 Elevation of levels of liver transaminase levels; D75.1 Secondary polycythemia; J45.909 Unspecified asthma, uncomplicated
CPT/HCPCS: 36415; 71045; 74176; 76705; 80053; 80307; 80320; 81001; 82550; 83605; 85007; 85025; 85027; 87426; 87804; 93005; 96374; 96375; G0378; J1885; J2405; J2470; J2543; J3490